=== PATIENT | female | born 1940 | race Caucasian/White ===

== ENCOUNTER 2017-02-21 20:14 | Emergency (ER) | payer MEDICARE ==
[~2017-02-21] VITALS: Ht 154.9 cm; Wt 53.8 kg
[~2017-02-21 20:14] MED LIST: KELP1TAB PO; LISI-167 PO; [UNRECOGNIZED DRUG - REMARK]
[2017-02-21] MEDS ORDERED: ONDANSETRON 2MG/ML, 2ML IVPush ONE (21:30)
[2017-02-21] MEDS ORDERED: SODIUM CHLORIDE 0.9% 1,000ML IVBOLUS ONE (21:30)
[2017-02-21 21:42] LABS: PATH.CAST-FLAG NOT PRESENT; SPERM-FLAG NOT PRESENT; SRC-FLAG NOT PRESENT; XTAL-FLAG NOT PRESENT; YLC-FLAG NOT PRESENT
[2017-02-21 21:54] LABS: HEMATOCRIT 42.6 % (34.6-47.8); HEMOGLOBIN 14.3 g/dL (11.7-16.4); WHITE BLOOD COUNT 7.3 x10^3/uL (3.4-10)
[2017-02-21 22:03] LABS: ASPARTATE AMINO TRANSFERASE 23 U/L (15-37); BLOOD UREA NITROGEN 24 mg/dL (7-18)
[2017-02-21] MEDS ORDERED: ONDANSETRON 2MG/ML, 2ML ONE (22:08)
[2017-02-21 22:10] LABS: IS PT STATUS REG ER OR PRE ER? YES
[2017-02-21] MEDS ORDERED: CIPROFLOXACIN 500 MG TABLET PO ONE (22:30)
[2017-02-21] MEDS ORDERED: CIPROFLOXACIN 500 MG TABLET ONE (22:56)
[2017-02-21 23:21] VITALS: BP 135/83
== END 2017-02-21 23:23 | disposition home or self-care (01) ==
LOC: ED 22:45
DX: N30.00 Acute cystitis without hematuria (principal); R42 Dizziness and giddiness; I10 Essential (primary) hypertension; Z88.0 Allergy status to penicillin; Z88.2 Allergy status to sulfonamides; F17.200 Nicotine dependence, unspecified, uncomplicated
CPT/HCPCS: 36415; 70450; 80053; 81001; 84484; 85025; 87077; 87086; 87186; 93005; 99285

== ENCOUNTER 2017-12-05 11:00 | Emergency (ER) | payer MEDICARE ==
[~2017-12-05] VITALS: Ht 152.4 cm; Wt 50.0 kg
[2017-12-05] MEDS ORDERED: ONDANSETRON ODT 4 MG PO PRN (12:00)
[2017-12-05] MEDS ORDERED: MORPHINE SULFATE 4 MG/ML, 1ML IVPush PRN (12:00)
[2017-12-05 12:07] LABS: BASOPHILS # (AUTO) 0.11 x10^3/uL (0-0.1); BASOPHILS % (AUTO) 1 % (0-1); EOSINOPHILS # (AUTO) 0.08 x10^3/uL (0-0.4); EOSINOPHILS % (AUTO) 1 % (1-7); LYMPHOCYTES # (AUTO) 2.17 x10^3/uL (1-3.4); LYMPHOCYTES % (AUTO) 21 % (22-44); MD NO; MEAN CORPUSCULAR HEMOGLOBIN 33.1 pg (27.0-34.8); MEAN CORPUSCULAR HGB CONC 34.2 g/dL (32.4-35.8); MEAN CORPUSCULAR VOLUME 96.8 fL (80-100); MEAN PLATELET VOLUME 7.7 fL (7.4-10.4); MONOCYTES # (AUTO) 0.75 x10^3/uL (0.2-0.8); MONOCYTES % (AUTO) 7 % (2-9); NEUTROPHILS # (AUTO) 7.46 x10^3/uL (1.8-6.8); NEUTROPHILS % (AUTO) 71 % (42-75); PLATELET COUNT 229 x10^3/uL (130-400); RED BLOOD COUNT 4.62 x10^6/uL (3.82-5.3)
[2017-12-05 12:19] LABS: ALBUMIN 3.5 g/dL (3.4-5.0); ANION GAP 9 mmol/L (5-15); CALCIUM 8.8 mg/dL (8.5-10.1); CHLORIDE 105 mmol/L (98-107)
[2017-12-05 12:22] LABS: CREATININE 0.83 mg/dL (0.55-1.02)
[2017-12-05] MEDS ORDERED: MORPHINE SULFATE 4 MG/ML, 1ML ONE (12:27)
[2017-12-05 14:26] VITALS: BP 112/75
== END 2017-12-05 15:40 | disposition home or self-care (01) ==
LOC: ED 11:55
DX: M54.16 Radiculopathy, lumbar region (principal); M25.551 Pain in right hip; I10 Essential (primary) hypertension; Z87.891 Personal history of nicotine dependence
CPT/HCPCS: 36415; 72131; 72192; 80048; 82040; 85025; 99285

== ENCOUNTER 2020-12-15 19:01 | Emergency (ER) | payer MEDICARE ==
[~2020-12-15] VITALS: Ht 154.9 cm; Wt 49.1 kg
--- NOTE | 2020-12-15 19:23 | NUR ---
PT C/O OF PAIN IN HER RLQ STATES SHE FEELS CONSTIPATED AND THAT SHE IS HAVING URINARY RETENTION REPORTS HAVING A BOWEL MOVEMENT YESTERDAY. PT AMBULATED TO ROOM WITH FWW WITH DAUGHTER ASSIST. SAFIA. PT CURRENTLY IN BATHROOM TO OBTAIN UA. SARAI
[2020-12-15] MEDS ORDERED: RIVA15TA PO (19:27)
[2020-12-15] MEDS ORDERED: METO-282 PO (19:27)
--- NOTE | 2020-12-15 19:43 | NUR ---
pt resting in bed. attached to omintors. nadn. vss. bed in low position, rails engaged. call light within reach. pt not able to urinate in bathroom.
[2020-12-15 20:00] LABS: BASOPHILS % (AUTO) 0 % (0-1); EOSINOPHILS % (AUTO) 2 % (1-7); LYMPHOCYTES % (AUTO) 29 % (22-44); MEAN CORPUSCULAR HEMOGLOBIN 32.9 pg (27.0-34.8); MEAN CORPUSCULAR HGB CONC 34.4 g/dL (32.4-35.8); MONOCYTES % (AUTO) 6 % (2-9); NEUTROPHILS % (AUTO) 63 % (42-75); PLATELET COUNT 237 x10^3/uL (130-400); RED BLOOD COUNT 4.83 x10^6/uL (3.82-5.3); RED CELL DISTRIBUTION WIDTH 14.2 % (9.6-15.2)
[2020-12-15] MEDS ORDERED: SODIUM CHLORIDE FLUSH 10ML SYR IVF ONE (20:00)
[2020-12-15] MEDS ORDERED: SODIUM CHLORIDE 0.9% 1,000 ML IV ONE (20:00)
[2020-12-15 20:11] LABS: ALANINE AMINOTRANSFERASE 21 U/L (12-78); ALBUMIN 3.4 g/dL (3.4-5.0); ANION GAP 4 mmol/L (5-15); CALCIUM 8.8 mg/dL (8.5-10.1); CHLORIDE 107 mmol/L (98-107)
[2020-12-15 20:13] LABS: ALKALINE PHOSPHATASE 92 U/L (45-117); TOTAL PROTEIN 7.6 g/dL (6.4-8.2)
--- NOTE | 2020-12-15 20:49 | NUR ---
PT OFF UNIT IN IMAGING
[2020-12-15] MEDS ORDERED: PINK LADY ENEMA 490 ML BOTTLE PR ONE (21:12)
--- NOTE | 2020-12-15 21:22 | NUR ---
PT TOLERATED STRAIGHT CATHETER WELL. 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 Bed in lowest, rails engaged, call light on lap. Vital Signs within normal limits. WCTM.
[2020-12-15 21:33] LABS: MICROSCOPIC AUTO
--- NOTE | 2020-12-15 21:47 | NUR ---
Patient is resting comfortably in bed. Bed in lowest, rails engaged, call light on lap. Vital Signs within normal limits. WCTM.
[2020-12-15] MEDS ORDERED: OMNIPAQUE 350 MG/ML, 100ML BOTTLE ONE (22:02)
--- NOTE | 2020-12-15 22:28 | NUR ---
PT GIVEN PINK LADY ENEMA. TOLERATING WELL/ TRANSFERRED TO BEDSIDE COMMODE ATTEMPTING BM
--- NOTE | 2020-12-15 22:33 | NUR ---
PT CALL LIGHT AT SIDE WHILE ON COMMODE
--- NOTE | 2020-12-15 23:10 | NUR ---
PT TRANSFERRED IN BED. ATTACHED TO MONITORS. VSS. SAFIA PT STATES FEELING BETTER. LARGE AMOUNT OF BROWN FORMED STOOL IN BEDSIDE COMMODE. BED IN LOW POSITION, RAILS ENGAGED. CALL LIGHT WITHIN REACH DAUGHTER AT BEDSIDE. WCTM
[2020-12-16 00:14] VITALS: BP 112/72
--- NOTE | 2020-12-16 00:15 | NUR ---
Patient/Caregiver given discharge instructions and they have confirmed that they understand the instructions. Patient ambulatory with steady gait. NAD, all questions answered appropriately, denies additional needs at this time. No personal belongings left in room after discharge. PT AMBULATED TO BATHRROM AND URINATED PRIOR TO DC WITH STEADY GAIT WELL.
== END 2020-12-16 00:17 | disposition home or self-care (01) ==
LOC: ED 21:37
DX: K59.00 Constipation, unspecified (principal); N30.00 Acute cystitis without hematuria; I10 Essential (primary) hypertension; Z88.0 Allergy status to penicillin; Z88.5 Allergy status to narcotic agent
CPT/HCPCS: 36415; 74177; 80053; 81001; 83690; 85025; 87077; 87086; 87186; 96360; 96361; 99285; J7030; Q9967

== ENCOUNTER 2021-03-05 22:19 | Emergency (ER) | payer MEDICARE ==
[~2021-03-05] VITALS: Ht 151.1 cm; Wt 49.4 kg
[~2021-03-05 22:19] MED LIST changes: +METO-282 PO; +RIVA15TA PO
[2021-03-05] MEDS ORDERED: SODIUM CHLORIDE FLUSH 10ML SYR IVF ONE (23:00)
[2021-03-05] MEDS ORDERED: SODIUM CHLORIDE 0.9% 1,000ML IVBOLUS ONE (23:00)
--- NOTE | 2021-03-05 23:53 | NUR ---
COMPENSATION SPECIALIST: PT. TO ROOM FROM LOBBY AT THIS TIME.
[2021-03-06 00:33] LABS: BASOPHILS % (AUTO) 1 % (0-1); EOSINOPHILS % (AUTO) 1 % (1-7); LYMPHOCYTES % (AUTO) 23 % (22-44); MEAN CORPUSCULAR HEMOGLOBIN 32.5 pg (27.0-34.8); MEAN CORPUSCULAR HGB CONC 33.9 g/dL (32.4-35.8); MEAN PLATELET VOLUME 7.6 fL (7.4-10.4); MONOCYTES % (AUTO) 8 % (2-9); NEUTROPHILS % (AUTO) 66 % (42-75); PLATELET COUNT 220 x10^3/uL (130-400); RED BLOOD COUNT 4.57 x10^6/uL (3.82-5.3); RED CELL DISTRIBUTION WIDTH 14.5 % (9.6-15.2)
[2021-03-06 00:41] LABS: ALANINE AMINOTRANSFERASE 20 U/L (12-78); ALBUMIN 3.2 g/dL (3.4-5.0); ANION GAP 7 mmol/L (5-15); CALCIUM 9.2 mg/dL (8.5-10.1); CHLORIDE 101 mmol/L (98-107); CREATININE 0.75 mg/dL (0.55-1.02)
[2021-03-06 00:51] LABS: ALKALINE PHOSPHATASE 83 U/L (45-117); BILIRUBIN,TOTAL 1.3 mg/dL (0.2-1.0); TOTAL PROTEIN 7.4 g/dL (6.4-8.2); TROPONIN I < 0.015 ng/mL (0.000-0.045)
[2021-03-06 01:15] LABS: FREE T4 (FREE THYROXINE) 1.23 ng/dL (0.76-1.46)
--- NOTE | 2021-03-06 01:29 | NUR ---
pt up to bsc for ua, unable to urinate at this time
[2021-03-06] MEDS ORDERED: MECLIZINE CHEWABLE 25 MG TAB ONE (01:58)
[2021-03-06] MEDS ORDERED: ONDANSETRON 2MG/ML, 2ML ONE (01:58)
[2021-03-06 02:00] VITALS: BP 147/108
[2021-03-06] MEDS ORDERED: MECLIZINE CHEWABLE 25 MG TAB PO ONE (02:00)
[2021-03-06] MEDS ORDERED: ONDANSETRON 2MG/ML, 2ML IVPush ONE (02:00)
--- NOTE | 2021-03-06 02:11 | NUR ---
pt up to urinate in bsc, accidentally threw tp in hat, unable to collect, md aware. pt states "I'm not staying all night to pee again".
--- NOTE | 2021-03-06 02:25 | NUR ---
spoke with daughter, Amena who is on her way back. aware pt is up for dc
--- NOTE | 2021-03-06 02:51 | NUR ---
Patient and daughter given discharge instructions and they have confirmed that they understand the instructions. Patient ambulatory with fww. NAD, all questions answered appropriately, denies additional needs at this time. No personal belongings left in room after discharge.
== END 2021-03-06 02:52 | disposition home or self-care (01) ==
LOC: ED 23:59
DX: R11.0 Nausea (principal); R42 Dizziness and giddiness; H57.89 Other specified disorders of eye and adnexa; R00.0 Tachycardia, unspecified; F17.210 Nicotine dependence, cigarettes, uncomplicated; I10 Essential (primary) hypertension
CPT/HCPCS: 36415; 70450; 71045; 80053; 84439; 84443; 84481; 84484; 85025; 93005; 96361; 96374; 99285; 99406; J2405; J7030